=== PATIENT | female | born 1995 | race African-American/Black ===

== ENCOUNTER 2017-06-09 22:58 | Emergency (ER) | payer OTHER ==
[~2017-06-09] VITALS: Ht 172.7 cm; Wt 50.0 kg
[~2017-06-09 22:58] MED LIST: BACT800T5 PO; PROC30SU PR; STOO100C PO; Z.0.NO CURRENT MEDS; ZOFR4TAB3 PO
[2017-06-09 22:59] VITALS: BP 165/100; PULSE 88; RESP 16; TEMP 98.5; O2SAT 98
[2017-06-10 01:38] LABS: BASOPHIL # 0.1 TH/MM3 (0-0.2); EOSINOPHIL % 0.6 % (0.0-4.0); HEMO FLAGS DIFF FINAL; LYMPH % 50.4 % (9.0-44.0); LYMPHOCYTE # 2.7 TH/MM3 (1.0-4.8); MEAN CORPUSCULAR HEMOGLOBIN 26.4 PG (27.0-34.0); MEAN CORPUSCULAR HGB CONC 32.6 % (32.0-36.0); MONO % 9.4 % (0.0-8.0); NEUT % 38.6 % (16.0-70.0); PLATELET COUNT 319 TH/MM3 (150-450); RED BLOOD COUNT 4.45 MIL/MM3 (4.00-5.30); RED CELL DISTRIBUTION WIDTH 14.6 % (11.6-17.2); WHITE BLOOD COUNT 5.3 TH/MM3 (4.0-11.0)
--- NOTE | 2017-06-10 01:40 | PD ---
HPI Chief Complaint: GI Complaint Time Seen by Provider: 23:34 Travel History International Travel<30 days: No Contact w/Intl Traveler<30days: No Traveled to known affect area: No History of Present Illness HPI Patient is a 20-year-old female with a history of rectal bleed in the past she says she's had a internal banding of her internal hemorrhoids about 6 months ago from a doctor surgeon in [place]. Patient now says she is having worsening of her bleeding. Patient is frustrated because she's had procedures done and still has hemorrhoid bleeding . She has a history of anemia as a child but she has never been able take iron because she cannot swallow pills family history is that her brother also has developed hemorrhoids patient denies any clotting disorder PFS Past Medical History Anemia: Yes Asthma: Yes (CHILDHOOD) Autoimmune Disease: No Blood Disorders: No Anxiety: No Depression: No Cardiovascular Problems: No Genitourinary: No Headaches: Yes Musculoskeletal: No Neurologic: Yes Psychiatric: No Reproductive: Yes (Period for 27 days heavy , medium, heavy, light etc.) Respiratory: Yes (Resp problems as a ) ?: Not LMP: CURRENT Past Surgical History Surgical History: No Previous Surgery Other Surgery: No Social History Alcohol Use: Yes (2 TIMES WEEKLY) Tobacco Use: No Substance Use: No Allergies-Medications (Allergen,Severity, Reaction): Coded Allergies: No Known Allergies (Verified Adverse Reaction, Unknown, 06/09/17) Reported Meds & Prescriptions Reported Meds & Active Scripts Active Preparation H Topical (Phenylephrine-Mineral Oil-Petrolatum Topical) 0.25-3-14- 71.9 % Oint 1 Applic TOPICAL DIRECTED PRN Review of Systems Except as stated in HPI: all other systems reviewed are Neg Gastrointestinal: Positive: Other (rectal bleed bright red blood in toilet bowl and on toilet) Physical Exam Narrative GENERAL: Nontoxic no distress alert oriented 3 SKIN: Warm and dry. HEAD: Atraumatic. Normocephalic. EYES: Pupils equal and round. No scleral icterus. No injection or drainage. ENT: No nasal bleeding or discharge. Mucous membranes pink and moist. NECK: Trachea midline. No JVD. CARDIOVASCULAR: Regular rate and rhythm. RESPIRATORY: No accessory muscle use. Clear to auscultation. Breath sounds equal bilaterally. GASTROINTESTINAL: Abdomen soft, non-tender, nondistended. Hepatic and splenic margins not palpable. Rectal exam patient has no external hemorrhoids she has one skin tag most likely from a prior hemorrhoid is guaiac positive but she is also having her period and has a tampon in her vagina MUSCULOSKELETAL: Extremities without clubbing, cyanosis, or edema. No obvious deformities. NEUROLOGICAL: Awake and alert. No obvious cranial nerve deficits. Motor grossly within normal limits. Five out of 5 muscle strength in the arms and legs. Normal speech. PSYCHIATRIC: Appropriate mood and affect; insight and judgment normal. Data Data Last Documented VS Vital Signs Date Time Temp Pulse Resp B/P (MAP) Pulse Ox O2 Delivery O2 Flow Rate FiO2 06/10/17 03:30 06/09/17 22:59 98.5 88 16 98 Room Air Orders Orders Complete Blood Count With Diff (06/10/17 01:19) Comprehensive Metabolic Panel (06/10/17 01:19) Ct Abd/Pel W Iv Contrast(Rout) (06/10/17 ) Urinalysis - C+S If Indicated (06/10/17 01:21) Ed Urine Pregnancytest Poc (06/10/17 01:21) Iohexol 350 Inj (Omnipaque 350 Inj) (06/10/17 02:23) Ed Discharge Order (06/10/17 03:21) Labs Laboratory Tests Test 06/10/17 01:20 White Blood Count 5.3 TH/MM3 Red Blood Count 4.45 MIL/MM3 Hemoglobin 11.8 GM/DL Hematocrit 36.0 % Mean Corpuscular Volume 81.0 FL Mean Corpuscular Hemoglobin 26.4 PG Mean Corpuscular Hemoglobin Concent 32.6 % Red Cell Distribution Width 14.6 % Platelet Count 319 TH/MM3 Mean Platelet Volume 7.9 FL Neutrophils (%) (Auto) 38.6 % Lymphocytes (%) (Auto) 50.4 % Monocytes (%) (Auto) 9.4 % Eosinophils (%) (Auto) 0.6 % Basophils (%) (Auto) 1.0 % Neutrophils # (Auto) 2.0 TH/MM3 Lymphocytes # (Auto) 2.7 TH/MM3 Monocytes # (Auto) 0.5 TH/MM3 Eosinophils # (Auto) 0.0 TH/MM3 Basophils # (Auto) 0.1 TH/MM3 CBC Comment DIFF FINAL Differential Comment Blood Urea Nitrogen 7 MG/DL Creatinine 0.56 MG/DL Random Glucose 83 MG/DL Total Protein 8.6 GM/DL Albumin 3.7 GM/DL Calcium Level 9.4 MG/DL Alkaline Phosphatase 42 U/L Aspartate Amino Transf (AST/SGOT) 16 U/L Alanine Aminotransferase (ALT/SGPT) 19 U/L Total Bilirubin 0.1 MG/DL Sodium Level 138 MEQ/L Potassium Level 4.0 MEQ/L Chloride Level 103 MEQ/L Carbon Dioxide Level 27.7 MEQ/L Anion Gap 7 MEQ/L Estimat Glomerular Filtration Rate 162 ML/MIN MDM Medical Decision Making Medical Screen Exam Complete: Yes Emergency Medical Condition: Yes Differential Diagnosis External hemorrhoids versus internal hemorrhoids versus AV malformation causing rectal bleeding Narrative Course Rectal exam mild guaiac-positive no hemorrhoids are felt or palpated with glove exam H&H within normal limits patient's CAT scan is done and no acute pathology that would warrant further work up in ER , I give her a referral to GI Surgery. Diagnosis Primary Impression: Rectal bleeding Referrals: [facility]ber[facility] Arana [facility] Patient Instructions: General Instructions, Rectal Bleeding (ED) Scripts Phenylephrine-Mineral Oil-Petrolatum Topical (Preparation H Topical) 0.25-3-14- 71.9 % Oint 1 APPLIC TOPICAL DIRECTED Y for Rectal Pain, #1 TUBE 0 Refills Prov: Clyde Rodriguez MD 06/10/17 Disposition: 01 DISCHARGE HOME Condition: Good Clyde Rodriguez MD Jun 10, 2017 01:40
[2017-06-10 02:07] LABS: ALKALINE PHOSPHATASE 42 U/L (45-117); TOTAL BILIRUBIN ADULT 0.1 MG/DL (0.2-1.0)
[2017-06-10 02:11] LABS: ALT (GPT) 19 U/L (10-53); ANION GAP 7 MEQ/L (5-15); AST (GOT) 16 U/L (15-37); BICARBONATE 27.7 MEQ/L (21.0-32.0); BLOOD UREA NITROGEN 7 MG/DL (7-18); CHLORIDE 103 MEQ/L (98-107); GLOMERULAR FILTRATION RATE 162 ML/MIN (>89); SODIUM (NA) 138 MEQ/L (136-145)
[2017-06-10] MEDS ORDERED: IOHEXOL 350 MG/ML 10 ML VIAL (for RAD DIAG) IVCONTRAST ONE (02:23)
--- NOTE | 2017-06-10 02:33 | RADRPT ---
EXAM DATE/TIME: 06/10/2017 02:11 [facility] COMPARISON: No previous studies available for comparison. INDICATIONS : Blood in stool for one year. IV CONTRAST: 70 cc Omnipaque 350 (iohexol) IV ORAL CONTRAST: No oral contrast ingested. RADIATION DOSE: 6.60 CTDIvol (mGy) MEDICAL HISTORY : None SURGICAL HISTORY : None. ENCOUNTER: Initial ACUITY: 1 yr PAIN SCALE: 2/10 LOCATION: abdomen TECHNIQUE: Volumetric scanning of the abdomen and pelvis was performed. Using automated exposure control and ad justment of the mA and/or kV according to patient size, radiation dose was kept as low as reasonably achievable to obtain optimal diagnostic quality images. DICOM format image data is available electro nically for review and comparison. FINDINGS: LOWER LUNGS: The visualized lower lungs are clear. LIVER: Homogeneous density without lesion. There is no dilation of the biliary tree. No calcified gallston es. SPLEEN: Normal size without lesion. PANCREAS: Within normal limits. KIDNEYS: Normal in size and shape. There is no mass, stone or hydronephrosis. ADRENAL GLANDS: Within normal limits. VASCULAR: There is no aortic aneurysm. BOWEL/MESENTERY: The stomach, small bowel, and colon demonstrate no acute abnormality. There is no free intraperitone al air or fluid. ABDOMINAL WALL: Within normal limits. RETROPERITONEUM: There is no lymphadenopathy. BLADDER: No wall thickening or mass. REPRODUCTIVE: Within normal limits. INGUINAL: There is no lymphadenopathy or hernia. MUSCULOSKELETAL: Within normal limits for patient age. CONCLUSION: 1. No evidence of acute abdominal or pelvic process. No masses are identified. Fede Pedro MD on June 10, 2017 at 2:29 Board Certified Radiologist. This report was verified electronically.
[2017-06-10] MEDS ORDERED: PREPOIN TOPICAL (03:19)
== END 2017-06-10 03:38 | disposition home or self-care (01) ==
LOC: NEPC 22:58
DX: K92.1 Melena (principal); D64.9 Anemia, unspecified; J45.909 Unspecified asthma, uncomplicated
CPT/HCPCS: 74177; 80053; 84703; 85025; 99285; Q9967